=== PATIENT | female | born 1990 | race African-American/Black ===

== ENCOUNTER 2018-03-10 16:41 | Emergency (ER) | payer SELFPAY ==
[~2018-03-10] VITALS: Ht 168.9 cm; Wt 55.4 kg
[2018-03-10 17:17] LABS: BACTERIA,URINE FEW /HPF (0-FEW); BILIRUBIN,URINE NEG (NEG); CLARITY,URINE HAZY; COLOR,URINE YELLOW; GLUCOSE,URINE NEG (NEG); NITRITE,URINE NEG (NEG); RBC,URINE OCC /HPF (0-2); UROBILINOGEN,URINE 0.2 mg/dL (0.2 mg/dL); WBC,URINE OCC /HPF (0-4)
[2018-03-10 17:18] LABS: SQUAMOUS EPITHELIAL CELL,UR MANY /LPF
[2018-03-10] MEDS ORDERED: CEPH-263 PO (17:42)
--- NOTE | 2018-03-10 17:42 | PHYS DOC ---
Past History Past Medical History: STD Past Surgical History: No Surgical History Alcohol Use: Occasionally Drug Use: None Adult General Chief Complaint Chief Complaint: URINARY FREQUENCY HPI HPI 22-year-old female otherwise healthy presenting the emergency department today with dysuria and changes in urine smell. She denies any exposure to STDs or changes in vaginal discharge or being . Her dysuria is a mild burning sensation worse when she urinates. Review of systems is negative for chest pain or shortness of breath. ED course: 28-year-old female presenting with dysuria. Urinalysis is negative however the patient's symptoms are quite consistent with urinary tract infection. We will initiate Keflex to have her follow up with her doctor in 1-2 days.The patient has been examined and was not found to have an emergency medical condition. The patient was then discharged home in stable condition to follow up with their primary care physician over the next 1-2 days. They were to return if their symptoms worsened or if they were concerned for any reason. They were also instructed to return to the emergency department if they were unable to get the recommended and appropriate follow-up. [id number] discharge instructions and return precautions were given. Patient's questions were answered to their satisfaction. Patient is comfortable with plan. Allergies Allergies Allergies Coded Allergies Type Severity Reaction Last Updated Verified latex Allergy Unknown 03/10/18 Yes Physical Exam Physical Exam Constitutional: Well developed, well nourished, no acute distress, non-toxic appearance. [] HENT: Normocephalic, atraumatic, bilateral external ears normal, oropharynx moist, no oral exudates, nose normal. [] Eyes: PERRLA, EOMI, conjunctiva normal, no discharge. [] Neck: Normal range of motion, no tenderness, supple, no stridor. [] Cardiovascular:Heart rate regular rhythm, no murmur [] Lungs & Thorax: Bilateral breath sounds clear to auscultation [] Abdomen: Bowel sounds normal, soft, no tenderness, no masses, no pulsatile masses. [] Skin: Warm, dry, no erythema, no rash. [] Back: No tenderness, no CVA tenderness. [] Extremities: No tenderness, no cyanosis, no clubbing, ROM intact, no edema. [] Neurologic: Alert and oriented X 3, normal motor function, normal sensory function, no focal deficits noted. [] Psychologic: Affect normal, judgement normal, mood normal. [] Current Patient Data Vital Signs Vital Signs Date Time Temp Pulse Resp B/P (MAP) Pulse Ox O2 Delivery O2 Flow Rate FiO2 03/10/18 16:41 97.7 94 18 98 Room Air Lab Results Laboratory Tests Test 03/10/18 16:51 Urine Collection Type Void Urine Color Yellow Urine Clarity Hazy Urine pH 7.0 Urine Specific [place] 1.015 Urine Protein Neg (NEG-TRACE) Urine Glucose (UA) Neg mg/dL (NEG) Urine Ketones (Stick) Neg mg/dL (NEG) Urine Blood Neg (NEG) Urine Nitrite Neg (NEG) Urine Bilirubin Neg (NEG) Urine Urobilinogen Dipstick 0.2 mg/dL (0.2 mg/dL) Urine Leukocyte Esterase Neg (NEG) Urine RBC Occ /HPF (0-2) Urine WBC Occ /HPF (0-4) Urine Squamous Epithelial Cells Many /LPF Urine Bacteria Few /HPF (0-FEW) EKG EKG [] Radiology/Procedures Radiology/Procedures [] Course & Med Decision Making Course & Med Decision Making Pertinent Labs and Imaging studies reviewed. (See chart for details) [] Dragon Disclaimer Dragon Disclaimer This electronic medical record was generated, in whole or in part, using a voice recognition dictation system. Departure Departure: Impression: Primary Impression: Dysuria Disposition: 01 HOME, SELF-CARE Condition: STABLE Referrals: PCPSERINA (PCP) Additional Instructions: Thank you for allowing us to participate in your care today. Return to the emergency department you have any new or worsening symptoms, or if you are concerned for any reason. Return to emergency department if you have any new or concerning symptoms including but not limited to fever, chills, nausea, vomiting, intractable pain, any new rashes, chest pain, shortness of air , uncontrolled bleeding, difficulty breathing, and/or vision loss. Follow up with your primary care physician within 1-2 days. Call your Primary Doctor tomorrow and inform them of your visit today. If you do not have a primary care provider we are happy to provide you with a list of our primary care providers contact information. This condition should be evaluated by your primary care physician and any recommended consulting services for continued management within 2 days after discharge. If at any time, you are having difficulty getting into your primary care doctor or a specialist, return to the emergency department. Scripts Cephalexin (KEFLEX) 250 Mg Capsule 1 CAP PO QID for DYSURIA, #12 CAP Prov: ESTELA WHALEN MD 03/10/18 ESTELA WHALEN MD Mar 10, 2018 17:42
[2018-03-10 18:19] VITALS: BP 119/75
== END 2018-03-10 18:21 | disposition home or self-care (01) ==
LOC: ER 16:41
DX: R30.0 Dysuria (principal); Z91.040 Latex allergy status
CPT/HCPCS: 81001; 99283

== ENCOUNTER 2018-08-18 05:49 | Emergency (ER) | payer SELFPAY ==
[~2018-08-18] VITALS: Ht 167.6 cm; Wt 54.4 kg
[~2018-08-18 05:49] MED LIST: CEPH-263 PO
--- NOTE | 2018-08-18 06:17 | PHYS DOC ---
Past History Past Medical History: No Pertinent History, STD Past Surgical History: No Surgical History Smoking: Cigarettes, Less than 1pk/day Alcohol Use: Occasionally Drug Use: None Adult General Chief Complaint Chief Complaint: EARACHE/EAR PAIN HPI HPI Patient is a 28-year-old female presents with 2 complaints. 1. Right ear pain that started yesterday. No swimming. Has noted some drainage of both clear as well as purulent material. No relief with home medicines. No fever. Nothing makes the symptoms better or worse. Symptoms are mild to moderate in intensity. 2. Urinary frequency. No significant dysuria. Similar symptoms with previous urinary tract infections. Patient has tried using leftover antibiotics, amoxicillin, without any improvement. No back pain or flank pain. No fever. Nothing makes the symptoms better or worse. Symptoms are mild to moderate in intensity.[] Review of Systems Review of Systems Constitutional: Denies fever or chills [] Eyes: Denies change in visual acuity, redness, or eye pain [] HENT: Denies nasal congestion or sore throat, see history of present illness [] Respiratory: Denies cough or shortness of breath [] Cardiovascular: No chest pain or palpitations[] GI: Denies abdominal pain, nausea, vomiting, bloody stools or diarrhea [] : Denies dysuria or hematuria, see history of present illness [] Musculoskeletal: Denies back pain or joint pain [] Integument: Denies rash or skin lesions [] Neurologic: Denies headache, focal weakness or sensory changes [] Endocrine: Denies polyuria or polydipsia [] All other systems were reviewed and found to be within normal limits, except as documented in this note. Allergies Allergies Allergies Coded Allergies Type Severity Reaction Last Updated Verified latex Allergy Unknown 03/10/18 Yes Physical Exam Physical Exam Constitutional: Well developed, well nourished, no acute distress, non-toxic appearance. [] HENT: Normocephalic, atraumatic, bilateral external ears normal, mild pain with tragus tug on the right. Mild canal edema on the right. TM is clear on the right. No mastoid tenderness bilaterally. Left canal and TM are normal. Oropharynx moist, no oral exudates, nose normal. [] Eyes: PERRLA, EOMI, conjunctiva normal, no discharge. [] Neck: Normal range of motion, no tenderness, supple, no stridor. [] Cardiovascular:Heart rate regular rhythm, no murmur [] Lungs & Thorax: Bilateral breath sounds clear to auscultation [] Abdomen: Bowel sounds normal, soft, no tenderness, no masses, no pulsatile masses. [] Skin: Warm, dry, no erythema, no rash. [] Back: No tenderness, no CVA tenderness. [] Extremities: No tenderness, no cyanosis, no clubbing, ROM intact, no edema. [] Neurologic: Alert and oriented X 3, normal motor function, normal sensory function, no focal deficits noted. [] Psychologic: Affect normal, judgement normal, mood normal. [] EKG EKG [] Radiology/Procedures Radiology/Procedures [] Course & Med Decision Making Course & Med Decision Making Pertinent Labs and Imaging studies reviewed. (See chart for details) ED course: Patient appears to have an otitis externa. No evidence of mastoiditis, no Homans ligament otitis externa, no meningitis or encephalitis. Her urine appears to be a contaminated sample. Does not appear to have a significant urinary tract infection.[] Dragon Disclaimer Dragon Disclaimer This electronic medical record was generated, in whole or in part, using a voice recognition dictation system. Departure Departure: Impression: Primary Impression: Otitis externa Additional Impression: Dysuria Disposition: 01 HOME, SELF-CARE Condition: IMPROVED Referrals: PCPSERINA (PCP) Patient Instructions: Dysuria, Otitis Externa Additional Instructions: Follow-up with your regular doctor in 2 days. If he did not have a regular doctor list of local clinics we provided for you. Drink plenty of fluids. Use the medication as prescribed. Return to the ER if worsening discomfort or any other concerns. Scripts Neomycin/Polymyxin B Sulf/Hc ([id number] EAR SOLN) 10 Ml Solution 4 DROP OT QID for otitis externa for 10 Days, MISC Prov: NIRANJAN BROTHERS DO 08/18/18 Meloxicam (MELOXICAM) 7.5 Mg Tablet 7.5 MG PO DAILY for PAIN, #20 TAB Prov: NIRANJAN BROTHERS DO 08/18/18 Cephalexin (KEFLEX) 500 Mg Capsule 500 MG PO QID for infection for 10 Days, #40 CAP Prov: NIRANJAN BROTHERS DO 08/18/18 Problem Qualifiers Primary Impression: Otitis externa Otitis externa type: unspecified type Chronicity: acute Laterality: right Qualified Codes: H60.501 - Unspecified acute noninfective otitis externa, right ear NIRANJAN BROTHERS DO Aug 18, 2018 06:17
[2018-08-18 07:03] LABS: BARBITURATES NEG (NEG); BENZODIAZEPINES NEG (NEG); CANNABINOIDS POS (NEG); COCAINE NEG (NEG); METHADONE NEG (NEG); OPIATES NEG (NEG); PHENCYCLIDINE NEG (NEG)
[2018-08-18 07:04] LABS: AMPHETAMINE/METHAMPHETAMINE NEG (NEG)
[2018-08-18 07:07] LABS: BACTERIA,URINE FEW /HPF (0-FEW); BILIRUBIN,URINE NEG (NEG); CLARITY,URINE HAZY; COLOR,URINE YELLOW; GLUCOSE,URINE NEG (NEG); NITRITE,URINE NEG (NEG); RBC,URINE OCC /HPF (0-2); SQUAMOUS EPITHELIAL CELL,UR MANY /LPF; UROBILINOGEN,URINE 0.2 mg/dL (0.2 mg/dL)
[2018-08-18] MEDS ORDERED: MELO7.5T29 PO (07:13)
[2018-08-18] MEDS ORDERED: CEPH-264 PO (07:13)
[2018-08-18] MEDS ORDERED: NEOM10SO7 OT (07:13)
[2018-08-18 07:20] VITALS: BP 102/76
== END 2018-08-18 07:20 | disposition home or self-care (01) ==
LOC: ER 05:49
DX: H60.501 Unspecified acute noninfective otitis externa, right ear (principal); R30.0 Dysuria; F17.210 Nicotine dependence, cigarettes, uncomplicated; Z87.440 Personal history of urinary (tract) infections; Z91.040 Latex allergy status
CPT/HCPCS: 36415; 80307; 81001; 81025; 99284

== ENCOUNTER 2018-11-10 18:05 | Emergency (ER) | payer SELFPAY ==
[~2018-11-10] VITALS: Ht 167.6 cm; Wt 55.4 kg
[~2018-11-10 18:05] MED LIST changes: +CEPH-264 PO; +MELO7.5T29 PO; +NEOM10SO7 OT
--- NOTE | 2018-11-10 18:43 | PHYS DOC ---
Past History Past Medical History: No Pertinent History, STD Past Surgical History: No Surgical History Smoking: Cigarettes, Less than 1pk/day Alcohol Use: Occasionally Drug Use: None Adult General Chief Complaint Chief Complaint: PAIN ON URINATION HPI HPI Patient is a 28-year-old female presents with dysuria for the past week. She was seen at [place] last week and diagnosed with the UTI. She finished the antibiotics without any improvement. She denies any hematuria, or vaginal bleeding. Denies any back or flank pain. Denies any fever. No nausea or vomiting. Nothing makes the symptoms better or worse. Patient has not followed up with any primary care physician for this condition. Symptoms are mild to moderate in intensity.[] Review of Systems Review of Systems Constitutional: Denies fever or chills [] Eyes: Denies change in visual acuity, redness, or eye pain [] HENT: Denies nasal congestion or sore throat [] Respiratory: Denies cough or shortness of breath [] Cardiovascular: No chest pain or palpitations[] GI: Denies abdominal pain, nausea, vomiting, bloody stools or diarrhea [] : See history of present illness[] Musculoskeletal: Denies back pain or joint pain [] Integument: Denies rash or skin lesions [] Neurologic: Denies headache, focal weakness or sensory changes [] Endocrine: Denies polyuria or polydipsia [] All other systems were reviewed and found to be within normal limits, except as documented in this note. Allergies Allergies Allergies Coded Allergies Type Severity Reaction Last Updated Verified latex Allergy Unknown 03/10/18 Yes Physical Exam Physical Exam Constitutional: Well developed, well nourished, no acute distress, non-toxic appearance. [] HENT: Normocephalic, atraumatic, bilateral external ears normal, oropharynx moist, no oral exudates, nose normal. [] Eyes: PERRLA, EOMI, conjunctiva normal, no discharge. [] Neck: Normal range of motion, no tenderness, supple, no stridor. [] Cardiovascular:Heart rate regular rhythm, no murmur [] Lungs & Thorax: Bilateral breath sounds clear to auscultation [] Abdomen: Bowel sounds normal, soft, no tenderness, no masses, no pulsatile masses. [] Skin: Warm, dry, no erythema, no rash. [] Back: No tenderness, no CVA tenderness. [] Extremities: No tenderness, no cyanosis, no clubbing, ROM intact, no edema. [] Neurologic: Alert and oriented X 3, normal motor function, normal sensory function, no focal deficits noted. [] Psychologic: Affect normal, judgement normal, mood normal. [] Current Patient Data Vital Signs Vital Signs Date Time Temp Pulse Resp B/P (MAP) Pulse Ox O2 Delivery O2 Flow Rate FiO2 11/10/18 18:16 98.2 84 16 100 Room Air Lab Results Laboratory Tests Test 11/10/18 18:36 POC Urine HCG, Qualitative hcg negative (Negative) EKG EKG [] Radiology/Procedures Radiology/Procedures [] Course & Med Decision Making Course & Med Decision Making Pertinent Labs and Imaging studies reviewed. (See chart for details) ED course: Patient arrived, was placed in bed, and tolerated exam well. After return lab these, these were discussed with patient who voiced understanding. All questions were answered. She was discharged in improved condition. Medical decision making: Patient with dysuria, no evidence of urinary tract in fection, however will cover for that. GC and chlamydia are currently in progress. Will also treat for dysuria. There is no evidence of pyelonephritis, nor systemic toxicity.[] Dragon Disclaimer Dragon Disclaimer This electronic medical record was generated, in whole or in part, using a voice recognition dictation system. Departure Departure: Impression: Primary Impression: Dysuria Disposition: 01 HOME, SELF-CARE Condition: IMPROVED Referrals: PCP,NO (PCP) Patient Instructions: Dysuria Additional Instructions: Follow-up with your regular doctor in 2 days. If you do not have regular doctor list of local clinics will be provided for you. Drink plenty of fluids. Take the medication as prescribed. Return to the ER if you develop a fever of more than 101�, or any other concerns. Scripts Fluconazole (DIFLUCAN) 150 Mg Tablet 1 TAB PO ONCE for take at end of doxycycline, #1 TAB 1 Refill Prov: NIRANJAN BROTHERS DO 11/10/18 Phenazopyridine Hcl (PYRIDIUM) 200 Mg Tablet 200 MG PO TID for dysuria for 2 Days, #6 TAB Prov: NIRANJAN BROTHERS DO 11/10/18 Meloxicam (MELOXICAM) 7.5 Mg Tablet 7.5 MG PO DAILY for PAIN, #20 TAB Prov: NIRANJAN BROTHERS DO 11/10/18 Doxycycline Hyclate (DOXYCYCLINE HYCLATE) 100 Mg Tablet 1 TAB PO BID for dysuria, #20 TAB Prov: NIRANJAN BROTHERS DO 11/10/18 NIRANJAN BROTHERS DO Nov 10, 2018 18:43
[2018-11-10 19:13] LABS: BACTERIA,URINE 0 /HPF (0-FEW); BILIRUBIN,URINE NEG (NEG); CLARITY,URINE CLEAR; COLOR,URINE YELLOW; GLUCOSE,URINE NEG (NEG); NITRITE,URINE NEG (NEG); RBC,URINE 0 /HPF (0-2); SQUAMOUS EPITHELIAL CELL,UR OCC /LPF; UROBILINOGEN,URINE 0.2 mg/dL (0.2 mg/dL); WBC,URINE OCC /HPF (0-4)
[2018-11-10] MEDS ORDERED: DOXY100T PO (19:26)
[2018-11-10] MEDS ORDERED: MELO7.5T29 PO (19:26)
[2018-11-10] MEDS ORDERED: PHEN-318 PO (19:26)
[2018-11-10] MEDS ORDERED: FLUC150T PO (19:26)
[2018-11-10 19:40] VITALS: BP 113/61
== END 2018-11-10 19:39 | disposition home or self-care (01) ==
LOC: ER 18:05
DX: R30.0 Dysuria (principal); F17.210 Nicotine dependence, cigarettes, uncomplicated; Z87.440 Personal history of urinary (tract) infections; Z91.040 Latex allergy status
CPT/HCPCS: 36415; 81001; 81025; 87491; 87591; 99284

== ENCOUNTER 2019-02-03 00:33 | Emergency (ER) | payer SELFPAY ==
[~2019-02-03] VITALS: Ht 167.6 cm; Wt 55.3 kg
[~2019-02-03 00:33] MED LIST changes: +DOXY100T PO; +FLUC150T PO; +PHEN-318 PO
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
[2019-02-03 00:51] VITALS: BP 117/77
[2019-02-03] MEDS ORDERED: AZITHROMYCIN 250 MG TABLET. PO ONE (01:15)
[2019-02-03] MEDS ORDERED: metroNIDAZOLE 500 MG TABLET PO ONE (01:15)
[2019-02-03] MEDS ORDERED: ONDANSETRON PF 4 MG/2 ML VIAL. IVP ONE (01:15)
[2019-02-03] MEDS ORDERED: CEPH-264 PO (01:16)
[2019-02-03] MEDS ORDERED: FLUC100T7 PO (01:17)
[2019-02-03] MEDS ORDERED: ONDANSETRON ODT 4 MG TAB.RAPDIS ONE (01:24)
[2019-02-03] MEDS ORDERED: cefTRIAXone SODIUM 1 GM VIAL ONE (01:24)
[2019-02-03] MEDS ORDERED: AZITHROMYCIN 250 MG TABLET. ONE (01:24)
[2019-02-03] MEDS ORDERED: metroNIDAZOLE 500 MG TABLET ONE (01:24)
[2019-02-03] MEDS ORDERED: cefTRIAXone IM 1 GM VIAL IM ONE (01:30)
[2019-02-03] MEDS ORDERED: ONDANSETRON ODT 4 MG TAB.RAPDIS PO ONE (01:30)
[2019-02-03 01:36] LABS: BACTERIA,URINE FEW /HPF (0-FEW); BILIRUBIN,URINE NEG (NEG); CLARITY,URINE CLEAR; COLOR,URINE YELLOW; GLUCOSE,URINE NEG (NEG); NITRITE,URINE NEG (NEG); RBC,URINE 0 /HPF (0-2); SQUAMOUS EPITHELIAL CELL,UR MANY /LPF; UROBILINOGEN,URINE 0.2 mg/dL (0.2 mg/dL); WBC,URINE OCC /HPF (0-4)
[2019-02-06 17:07] LABS: CHLAMYDIA PROBE Negative (Negative)
== END 2019-02-03 01:50 | disposition home or self-care (01) ==
LOC: ER 00:33
DX: N72 Inflammatory disease of cervix uteri (principal); F17.210 Nicotine dependence, cigarettes, uncomplicated; Z91.040 Latex allergy status
CPT/HCPCS: 36415; 81001; 81025; 87491; 87591; 96372; 99284; J0456; J0696; Q0111; Q0162

== ENCOUNTER 2019-03-21 19:27 | Emergency (ER) | payer SELFPAY ==
[~2019-03-21 19:27] MED LIST changes: +FLUC100T7 PO
== END 2019-03-21 20:50 | disposition home or self-care (01) ==
LOC: ER 19:27
DX: R30.0 Dysuria (principal); Z53.21 Procedure and treatment not carried out due to patient leaving prior to being seen by health care provider

== ENCOUNTER 2019-04-04 14:49 | Emergency (ER) | payer SELFPAY ==
[~2019-04-04] VITALS: Ht 167.6 cm; Wt 55.4 kg
[2019-04-04 15:47] LABS: BACTERIA,URINE MOD /HPF (0-FEW); BILIRUBIN,URINE NEG (NEG); CLARITY,URINE HAZY; COLOR,URINE YELLOW; GLUCOSE,URINE NEG (NEG); NITRITE,URINE POS (NEG); RBC,URINE 0 /HPF (0-2); SQUAMOUS EPITHELIAL CELL,UR FEW /LPF; UROBILINOGEN,URINE 0.2 mg/dL (0.2 mg/dL)
--- NOTE | 2019-04-04 16:03 | PHYS DOC ---
Past History Past Medical History: No Pertinent History, STD Past Surgical History: No Surgical History Smoking: Cigarettes, Less than 1pk/day Alcohol Use: Occasionally Drug Use: None Adult General Chief Complaint Chief Complaint: PAIN ON URINATION HPI HPI 29-year-old female presents with vaginal irritation. The patient's PCP for more than a week ago and diagnosed with UTI. She has been taking antibiotics as well as Flagyl for bacterial vaginosis and Diflucan for yeast. The patient still has irritation mostly on the right side of her labia. She had STD testing which was all negative. She was just concerned she still has irritation were not sure why. She has not had sexual intercourse last 2 weeks. She has been using tampons, but not a new brand or scent. She denies fever or chills. Denies dysuria or increased urinary frequency. Review of Systems Review of Systems Constitutional: Denies fever or chills [] Eyes: Denies change in visual acuity, redness, or eye pain [] HENT: Denies nasal congestion or sore throat [] Respiratory: Denies cough or shortness of breath [] Cardiovascular: No additional information not addressed in HPI [] GI: Denies abdominal pain, nausea, vomiting, bloody stools or diarrhea [] : Vaginal pain[] Musculoskeletal: Denies back pain or joint pain [] Integument: Denies rash or skin lesions [] Neurologic: Denies headache, focal weakness or sensory changes [] Endocrine: Denies polyuria or polydipsia [] All other systems were reviewed and found to be within normal limits, except as documented in this note. Allergies Allergies Allergies Coded Allergies Type Severity Reaction Last Updated Verified latex Allergy Unknown 03/10/18 Yes Physical Exam Physical Exam Constitutional: Well developed, well nourished, no acute distress, non-toxic appearance. [] HENT: Normocephalic, atraumatic, bilateral external ears normal, oropharynx moist, no oral exudates, nose normal. [] Eyes: PERRLA, EOMI, conjunctiva normal, no discharge. [] Neck: Normal range of motion, no tenderness, supple, no stridor. [] Cardiovascular:Heart rate regular rhythm, no murmur [] Lungs & Thorax: Bilateral breath sounds clear to auscultation [] Abdomen: Bowel sounds normal, soft, no tenderness, no masses, no pulsatile masses. [] Skin: Warm, dry, no erythema, no rash. [] Back: No tenderness, no CVA tenderness. [] Extremities: No tenderness, no cyanosis, no clubbing, ROM intact, no edema. [] Neurologic: Alert and oriented X 3, normal motor function, normal sensory function, no focal deficits noted. [] Psychologic: Affect normal, judgement normal, mood normal. : Normal external genitalia, shaved pubic hair, thick white discharge, mild tenderness.[] Current Patient Data Vital Signs Vital Signs Date Time Temp Pulse Resp B/P (MAP) Pulse Ox O2 Delivery O2 Flow Rate FiO2 04/04/19 15:10 98.8 86 15 122/74 (90) 99 Room Air Lab Results Laboratory Tests Test 04/04/19 15:00 04/04/19 15:22 Urine Collection Type Unknown Urine Color Yellow Urine Clarity Hazy Urine pH 6.5 Urine Specific [place] 1.020 Urine Protein Neg (NEG-TRACE) Urine Glucose (UA) Neg mg/dL (NEG) Urine Ketones (Stick) Neg mg/dL (NEG) Urine Blood Neg (NEG) Urine Nitrite Pos (NEG) Urine Bilirubin Neg (NEG) Urine Urobilinogen Dipstick 0.2 mg/dL (0.2 mg/dL) Urine Leukocyte Esterase Neg (NEG) Urine RBC 0 /HPF (0-2) Urine WBC 5-10 /HPF (0-4) Urine Squamous Epithelial Cells Few /LPF Urine Bacteria Mod /HPF (0-FEW) POC Urine HCG, Qualitative hcg negative (Negative) EKG EKG [] Radiology/Procedures Radiology/Procedures [] Course & Med Decision Making Course & Med Decision Making Pertinent Labs and Imaging studies reviewed. (See chart for details) The patient's wet prep is negative. She still appears to have UTI. I will treat her with fosfomycin single dose in the ED. She is stable for discharge at this time. Some of her irritation may also be from razor burn from shaving her pubic hair. [] Dragon Disclaimer Dragon Disclaimer This electronic medical record was generated, in whole or in part, using a voice recognition dictation system. Departure Departure: Impression: Primary Impression: UTI (urinary tract infection) Disposition: 01 HOME, SELF-CARE Condition: STABLE Referrals: NAHOMY JARVIS MD (PCP) Patient Instructions: Urinary Tract Infection, [id number] Problem Qualifiers Primary Impression: UTI (urinary tract infection) Urinary tract infection type: acute cystitis Hematuria presence: with hematuria Qualified Codes: N30.01 - Acute cystitis with hematuria BELL YIN DO Apr 04, 2019 16:03
[2019-04-04] MEDS ORDERED: FOSFOMYCIN TROMETHAMINE 3 GM PACKET PO ONE (17:00)
[2019-04-04 17:15] VITALS: BP 118/67
== END 2019-04-04 17:18 | disposition home or self-care (01) ==
LOC: ER 14:54
DX: N30.01 Acute cystitis with hematuria (principal); F17.210 Nicotine dependence, cigarettes, uncomplicated; Z91.040 Latex allergy status
CPT/HCPCS: 81001; 81025; 87086; 99284; Q0111

== ENCOUNTER 2019-05-04 15:17 | Emergency (ER) | payer SELFPAY ==
[~2019-05-04] VITALS: Ht 167.6 cm; Wt 53.6 kg
[2019-05-04 15:17] VITALS: BP 109/70
--- NOTE | 2019-05-04 15:48 | PHYS DOC ---
Past History Past Medical History: No Pertinent History, STD Past Surgical History: No Surgical History Smoking: Cigarettes, Less than 1pk/day Alcohol Use: Occasionally Drug Use: None Adult General Chief Complaint Chief Complaint: PAIN ON URINATION HPI HPI Patient is a 29-year-old female, who presents to the emergency department for evaluation. She states for the past few days, she has had urinary frequency, dysuria, and hesitancy. She has not had any vaginal bleeding or discharge, denies any pelvic or back pain, fevers, chills, nausea, or vomiting. There are n o alleviating or exacerbating factors to her symptoms otherwise. Review of Systems Review of Systems Constitutional: Denies fever or chills [] Eyes: Denies change in visual acuity, redness, or eye pain [] HENT: Denies nasal congestion or sore throat [] GI: Denies abdominal pain, nausea, vomiting, bloody stools or diarrhea [] : Denies vaginal bleeding, discharge, or hematuria [] Musculoskeletal: Denies back pain or joint pain [] Integument: Denies rash or skin lesions [] Neurologic: Denies headache, focal weakness or sensory changes [] Allergies Allergies Allergies Coded Allergies Type Severity Reaction Last Updated Verified latex Allergy Unknown 03/10/18 Yes Physical Exam Physical Exam PHYSICAL EXAM: CONSTITUTIONAL: Well developed, well nourished HEAD: normocephalic, atraumatic EENT: PERRL, EOMI. Conjunctivae normal color, sclerae non-icteric; moist mucous membranes. NECK: Supple, non-tender; no meningismus. LUNGS: Lungs CTA, breathing even and unlabored. Normal air movement. HEART: Regular rate and rhythm, no murmur CHEST: No deformity; non-tender ABDOMEN: The abdomen is soft, and non-tender, no masses or bruits. EXTREM: Normal ROM; no deformity, no calf tenderness. Normal pulses palpable in all extremities. There is no pedal edema. SKIN: No rash; no diaphoresis NEURO: Alert; normal speech and cognition; CN's grossly intact; strength grossly intact without focal deficit. BACK: No CVA TTP. Current Patient Data Lab Results Laboratory Tests Test 05/04/19 15:43 POC Urine HCG, Qualitative hcg negative (Negative) EKG EKG [] Radiology/Procedures Radiology/Procedures [] Course & Med Decision Making Course & Med Decision Making Pertinent Labs studies reviewed. (See chart for details) []Patient underwent a medical screening exam, and per hospital MSE policy, declined to complete course of treatment in this facility. She has departed the emergency department prior to results of her urinalysis become available. Dragon Disclaimer Dragon Disclaimer This electronic medical record was generated, in whole or in part, using a voice recognition dictation system. Departure Departure: Impression: Primary Impression: Dysuria Disposition: AGAINST MEDICAL ADVICE Condition: STABLE Referrals: NAHOMY JARVIS MD (PCP) JUNE LOCO MD May 04, 2019 15:48
[2019-05-04 16:23] LABS: BACTERIA,URINE 0 /HPF (0-FEW); BILIRUBIN,URINE NEG (NEG); CLARITY,URINE CLEAR; COLOR,URINE YELLOW; GLUCOSE,URINE NEG (NEG); NITRITE,URINE NEG (NEG); RBC,URINE 0 /HPF (0-2); SQUAMOUS EPITHELIAL CELL,UR OCC /LPF; UROBILINOGEN,URINE 0.2 mg/dL (0.2 mg/dL); WBC,URINE 0 /HPF (0-4)
== END 2019-05-04 16:15 | disposition left against medical advice (07) ==
LOC: ER 15:17
DX: R30.0 Dysuria (principal); R35.0 Frequency of micturition; R39.11 Hesitancy of micturition; F17.210 Nicotine dependence, cigarettes, uncomplicated; Z91.040 Latex allergy status
CPT/HCPCS: 81001; 81025; 99283

== ENCOUNTER 2020-03-27 19:42 | Emergency (ER) | payer OTHER ==
[~2020-03-27] VITALS: Ht 167.6 cm; Wt 62.2 kg
[2020-03-27] MEDS ORDERED: IV NORMAL SALINE 1,000ML 1,000 ML IV ONE (20:15)
[2020-03-27 20:31] LABS: BASO # 0.1 x10^3/uL (0.0-0.2); BASO % 1 % (0-3); EOS # 0.3 x10^3/uL (0.0-0.7); EOS % 3 % (0-3); HEMATOCRIT 37.5 % (36.0-47.0); HEMOGLOBIN 12.7 g/dL (12.0-15.5); LYMPH # 2.3 x10^3/uL (1.0-4.8); LYMPH % 19 % (24-48); MEAN CORPUSCULAR HEMOGLOBIN 30 pg (25-35); MEAN CORPUSCULAR HGB CONC 34 g/dL (31-37); MEAN CORPUSCULAR VOLUME 88 fL (79-100); MONO # 1.3 x10^3/uL (0.0-1.1); MONO % 10 % (0-9); NEUT # 8.4 x10^3uL (1.8-7.7); NEUT % 68 % (31-73); PLATELET COUNT 243 x10^3/uL (140-400); RED BLOOD COUNT 4.27 x10^6/uL (3.50-5.40); RED CELL DISTRIBUTION WIDTH 13.1 % (11.5-14.5); WHITE BLOOD COUNT 12.4 x10^3/uL (4.0-11.0)
[2020-03-27 20:41] LABS: ALBUMIN/GLOBULIN RATIO 0.7 (1.0-1.7); CALCIUM 8.5 mg/dL (8.5-10.1); CREATININE 0.7 mg/dL (0.6-1.0); GFR 118.9; MAGNESIUM 1.6 mg/dL (1.8-2.4); POTASSIUM 3.9 mmol/L (3.5-5.1); TOTAL BILIRUBIN 0.3 mg/dL (0.2-1.0); TOTAL PROTEIN 7.1 g/dL (6.4-8.2)
--- NOTE | 2020-03-27 20:46 | PHYS DOC ---
Past History Past Medical History: No Pertinent History, STD Past Surgical History: No Surgical History Smoking: Cigarettes, Less than 1pk/day Additional Smoking Information: not currently smoking 2/2 Alcohol Use: Occasionally Additional Alcohol Information: not currently smoking 2/2 Drug Use: None General Adult EDM: Chief Complaint: ABDOMINAL PAIN HPI: HPI: Patient is a 30 year old female who presents at 13w5d with abdominal pain. She began to notice a constant 5/10 bilateral lower abdominal pain yesterday that has persisted to today. She also has been experiencing urinary urgency and frequency. She denies dysuria, vaginal discharge, or vaginal bleeding. She has not taken anything for the pain and has not found anything that makes it better. She also has noted that she has been constipated for the last couple of weeks. Her last bowel movement was yesterday, it was small and firm and required straining. Prior to that she did not have a bowel movement for a week. She denies nausea, vomiting, or blood in stool. Review of Systems: Review of Systems: Constitutional: Denies fever or chills HENT: Denies nasal congestion or sore throat Respiratory: Denies cough or shortness of breath Cardiovascular: Denies chest pain or palpitations GI: Admits bilateral lower abdominal pain, constipation. 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 Denies dysuria or hematuria, vaginal discharge, vaginal bleeding Musculoskeletal: admits back pain. Denies joint pain Integument: Denies rash or skin lesions Neurologic: Denies headache, focal weakness or sensory changes Complete systems were reviewed and found to be within normal limits, except as documented in this note. Current Medications: Current Meds: Current Medications Medications (Trade) Dose Ordered Sig/Isai Start Time Stop Time Status Last Admin Dose Admin Sodium Chloride 1,000 ml @ 1,000 mls/hr 1X ONCE 03/27/20 20:15 03/27/20 21:14 03/27/20 20:08 1,000 MLS/HR Allergies: Allergies: Allergies Coded Allergies Type Severity Reaction Last Updated Verified latex Allergy Unknown 05/04/19 Yes Physical Exam: PE: Constitutional: Well developed, well nourished, no acute distress, non-toxic appearance HENT: Normocephalic, atraumatic Eyes: EOMI, conjunctiva normal, no discharge Neck: Normal range of motion, no tenderness, supple Lungs & Thorax: No respiratory distress, equal chest rise and fall Abdomen: Soft, gravid uterus below umbilicus , no tenderness Pelvic exam: No lesions or ulcers on external genitalia. Right labia majora had nontender area of scar tissue. Speculum exam:Copious light yellow thick curdl like discharge in the vaginal vault and adherent to vaginal kirkpatrick. Bimanual Exam: posterior cervix non-tender, no masses in vagina adnexa non-tender/no masses palpated bilaterally, uterus enlarged. Route Deliverer present in room- [facility] RN Skin: Warm, dry, no erythema, no rash Extremities: No tenderness, ROM intact, no edema Neurologic: Alert and oriented X 3, normal motor function, normal sensory function, no focal deficits noted Psychologic: Affect normal, judgment normal Current Patient Data: Vital Signs: Vital Signs Date Time Temp Pulse Resp B/P (MAP) Pulse Ox O2 Delivery O2 Flow Rate FiO2 03/27/20 20:12 98.6 91 16 127/83 (98) 100 Room Air EKG: EKG: [] Radiology/Procedures: Radiology/Procedures: PROCEDURE: OB <14 WKS Exam: Ultrasound OB less than 14 weeks Indication: Abdominal pain and Technique: Real-time grayscale and color Doppler images of the pelvis were obtained by the department binder folder operator. Comparisons: None FINDINGS: Uterus measures 13.4 x 8.9 x 7.1 cm. Within the endometrium there is a gestational sac with internal pole measuring 6.9 cm corresponding to 13 weeks 1 day. origin measured at 1 53 bpm. Placenta is fundal and appears normal. Left and right ovary is not visualized. IMPRESSION: 1. Single live intrauterine gestation measuring 13 weeks 1 day by current ultrasound. 2. Dedicated survey is recommended at 18-20 weeks gestation. Electronically signed by: Leonel Bethea MD (03/27/2020 10:05 PM) [facility] Course & Med Decision Making: Course & Med Decision Making Pertinent Labs and Imaging studies reviewed. (See chart for details) This 30 yo female presents at 13w5d with abdominal pain, urinary frequency, and constipation. She was provided IVF while in the ED. CBC, BMP, Mg, Lipase ordered to evaluate for signs of infection, electrolyte abnormalities, potential cause of abdominal pain. WBC at 12.5. A wet pelvic exam was performed, swab collected to test for STI, BV, and yeast. Patient declined empiric treatment/coverage for Chlamydia/Gonorrhea. Pelvic exam consistent with concern for vulvovaginal candidiasis confirmed by wet mo unt. Urine negative for infection. Ultrasound stable with single IUP with good heart rate. Patient stable for discharge with outpatient follow-up with PCP/OB. Discussed findings and plan with patient, who acknowledges understanding and agreement. Hussein Disclaimer: Hussein Disclaimer: This electronic medical record was generated, in whole or in part, using a voice recognition dictation system. Departure Departure: Impression: Primary Impression: Abdominal pain during Qualified Codes: O26.891 - Other specified related conditions, first trimester; R10.9 - Unspecified abdominal pain Additional Impressions: Vulvovaginal candidiasis Bacterial vaginosis in Disposition: 01 DC HOME SELF CARE/HOMELESS Condition: STABLE Referrals: ADE TOM CNM (PCP) Patient Instructions: Abdominal Pain During , [id number], Bacterial Vaginosis, [id number], Candidal Vulvovaginitis, Wdgh-ka-Ogju Scripts Fluconazole (DIFLUCAN) 200 Mg Tablet 1 TAB PO DAILY for Yeast, #1 TAB Take this medication 1 day after finishing antibiotic therapy. Prov: AIDE KOTHARI DO 03/27/20 Metronidazole (FLAGYL) 500 Mg Tablet 1 TAB PO BID for Bacterial Vaginitis, #14 TAB Prov: AIDE KOTHARI DO 03/27/20 AIDE KOTHARI DO Mar 27, 2020 20:46
[2020-03-27 21:26] LABS: BILIRUBIN,URINE NEG (NEG); CLARITY,URINE CLEAR; COLOR,URINE COLORLESS; GLUCOSE,URINE NEG (NEG)
[2020-03-27 21:27] LABS: BACTERIA,URINE 0 /HPF (0-FEW); NITRITE,URINE NEG (NEG); RBC,URINE 0 /HPF (0-2); SQUAMOUS EPITHELIAL CELL,UR FEW /LPF; UROBILINOGEN,URINE 0.2 mg/dL (0.2 mg/dL); WBC,URINE 0 /HPF (0-4)
--- NOTE | 2020-03-27 22:08 | RAD ---
Exam: Ultrasound OB less than 14 weeks Indication: Abdominal pain and Technique: Real-time grayscale and color Doppler images of the pelvis were obtained by the department telephone betting clerk. Comparisons: None FINDINGS: Uterus measures 13.4 x 8.9 x 7.1 cm. Within the endometrium there is a gestational sac with internal pole measuring 6.9 cm corresponding to 13 weeks 1 day. origin measured at 1 53 bpm. Placenta is fundal and appears normal. Left and right ovary is not visualized. IMPRESSION: 1. Single live intrauterine gestation measuring 13 weeks 1 day by current ultrasound. 2. Dedicated survey is recommended at 18-20 weeks gestation. Electronically signed by: Leonel Bethea MD (03/27/2020 10:05 PM) [facility]
[2020-03-27] MEDS ORDERED: FLUC200T PO (22:31)
[2020-03-27] MEDS ORDERED: METR500T PO (22:31)
[2020-03-27 22:41] VITALS: BP 118/76
[2020-03-27] MEDS ORDERED: FLUCONAZOLE 100 MG TABLET. PO ONE (22:45)
[2020-03-29 19:13] LABS: CHLAMYDIA PROBE Negative (Negative)
== END 2020-03-27 22:42 | disposition home or self-care (01) ==
LOC: ER 19:42
DX: O23.591 Infection of other part of genital tract in pregnancy, first trimester (principal); B96.89 Other specified bacterial agents as the cause of diseases classified elsewhere; O98.811 Other maternal infectious and parasitic diseases complicating pregnancy, first trimester; B37.3 Candidiasis of vulva and vagina; R39.15 Urgency of urination; Z3A.13 13 weeks gestation of pregnancy
CPT/HCPCS: 76801; 80053; 81001; 83690; 83735; 84702; 85025; 87086; 87491; 87591; 96360; 99284; J7030; Q0111; 36415

== ENCOUNTER 2020-07-17 00:14 | Emergency (ER) | payer OTHER ==
[~2020-07-17] VITALS: Ht 167.6 cm; Wt 75.0 kg
[~2020-07-17 00:14] MED LIST changes: +FLUC200T PO; +METR500T PO
[2020-07-17] MEDS ORDERED: ONDANSETRON PF 4 MG/2 ML VIAL. IVP ONE (01:00)
[2020-07-17] MEDS ORDERED: IV NORMAL SALINE 1,000ML 1,000 ML IV ONE (01:00)
[2020-07-17] MEDS ORDERED: FAMOTIDINE 20 MG/2 ML VIAL IVP ONE (01:00)
[2020-07-17 01:31] LABS: BASO # 0.1 x10^3/uL (0.0-0.2); BASO % 1 % (0-3); EOS # 0.3 x10^3/uL (0.0-0.7); EOS % 2 % (0-3); HEMATOCRIT 33.3 % (36.0-47.0); HEMOGLOBIN 10.6 g/dL (12.0-15.5); LYMPH # 2.2 x10^3/uL (1.0-4.8); LYMPH % 15 % (24-48); MEAN CORPUSCULAR HEMOGLOBIN 25 pg (25-35); MEAN CORPUSCULAR HGB CONC 32 g/dL (31-37); MEAN CORPUSCULAR VOLUME 79 fL (79-100); MONO # 1.6 x10^3/uL (0.0-1.1); MONO % 11 % (0-9); NEUT # 10.6 x10^3uL (1.8-7.7); NEUT % 72 % (31-73); PLATELET COUNT 256 x10^3/uL (140-400); RED BLOOD COUNT 4.21 x10^6/uL (3.50-5.40); RED CELL DISTRIBUTION WIDTH 15.4 % (11.5-14.5); WHITE BLOOD COUNT 14.7 x10^3/uL (4.0-11.0)
--- NOTE | 2020-07-17 01:36 | PHYS DOC ---
Past History Past Medical History: No Pertinent History, STD Past Surgical History: No Surgical History Smoking: Cigarettes, Less than 1pk/day Alcohol Use: Occasionally Drug Use: None General Adult EDM: Chief Complaint: HEMATEMESIS/VOMITING BLOOD HPI: HPI: Patient is a [age] year old [sex] who presents with [] Review of Systems: Review of Systems: Constitutional: Denies fever or chills Eyes: Denies redness or eye pain HENT: Denies nasal congestion or sore throat Respiratory: Denies cough or shortness of breath Cardiovascular: Denies chest pain or palpitations GI: Denies abdominal pain, nausea, or vomiting : Denies dysuria or hematuria Musculoskeletal: Denies back pain or joint pain Integument: Denies rash or skin lesions Neurologic: Denies headache, focal weakness or sensory changes Complete systems were reviewed and found to be within normal limits, except as documented in this note. Current Medications: Current Meds: Current Medications Medications (Trade) Dose Ordered Sig/Isai Start Time Stop Time Status Last Admin Dose Admin Famotidine (Pepcid Vial) 20 mg 1X ONCE 07/17/20 01:00 07/17/20 01:01 DC 07/17/20 01:05 20 MG Ondansetron HCl (Zofran) 4 mg 1X ONCE 07/17/20 01:00 07/17/20 01:01 DC 07/17/20 01:05 4 MG Sodium Chloride 1,000 ml @ 1,000 mls/hr 1X ONCE 07/17/20 01:00 07/17/20 01:59 07/17/20 01:05 1,000 MLS/HR Allergies: Allergies: Allergies Coded Allergies Type Severity Reaction Last Updated Verified latex Allergy Unknown 05/04/19 Yes Physical Exam: PE: Constitutional: Well developed, well nourished, no acute distress, non-toxic appearance HENT: Normocephalic, atraumatic Eyes: PERRL, EOMI, conjunctiva normal, no discharge Neck: Normal range of motion, no tenderness, supple Lungs & Thorax: No respiratory distress, equal chest rise and fall Abdomen: Soft, no tenderness Skin: Warm, dry, no erythema, no rash Back: No tenderness, no CVA tenderness Extremities: No tenderness, ROM intact, no edema Neurologic: Alert and oriented X 3, normal motor function, normal sensory f unction, no focal deficits noted Psychologic: Affect normal, judgment normal Current Patient Data: Labs: Laboratory Tests Test 07/17/20 00:55 White Blood Count 14.7 x10^3/uL (4.0-11.0) H Red Blood Count 4.21 x10^6/uL (3.50-5.40) Hemoglobin 10.6 g/dL (12.0-15.5) L Hematocrit 33.3 % (36.0-47.0) L Mean Corpuscular Volume 79 fL (79-100) Mean Corpuscular Hemoglobin 25 pg (25-35) Mean Corpuscular Hemoglobin Concent 32 g/dL (31-37) Red Cell Distribution Width 15.4 % (11.5-14.5) H Platelet Count 256 x10^3/uL (140-400) Neutrophils (%) (Auto) 72 % (31-73) Lymphocytes (%) (Auto) 15 % (24-48) L Monocytes (%) (Auto) 11 % (0-9) H Eosinophils (%) (Auto) 2 % (0-3) Basophils (%) (Auto) 1 % (0-3) Neutrophils # (Auto) 10.6 x10^3uL (1.8-7.7) H Lymphocytes # (Auto) 2.2 x10^3/uL (1.0-4.8) Monocytes # (Auto) 1.6 x10^3/uL (0.0-1.1) H Eosinophils # (Auto) 0.3 x10^3/uL (0.0-0.7) Basophils # (Auto) 0.1 x10^3/uL (0.0-0.2) Vital Signs: Vital Signs Date Time Temp Pulse Resp B/P (MAP) Pulse Ox O2 Delivery O2 Flow Rate FiO2 07/17/20 00:14 98.3 95 18 109/74 (86) 96 Room Air EKG: EKG: [] Radiology/Procedures: Radiology/Procedures: [] Heart Score: C/O Chest Pain: N/A Course & Med Decision Making: Course & Med Decision Making Pertinent Labs and Imaging studies reviewed. (See chart for details) Patient stable for discharge with outpatient follow-up with PCP. Discussed findings and plan with patient, who acknowledges understanding and agreement. Hussein Disclaimer: Hussein Disclaimer: This electronic medical record was generated, in whole or in part, using a voice recognition dictation system. Departure Departure: Impression: Primary Impression: Vomiting during in third trimester Additional Impression: Anemia Qualified Codes: D64.9 - Anemia, unspecified Disposition: HOME / SELF CARE / HOMELESS Condition: STABLE Referrals: ADE TOM CNM (PCP) Patient Instructions: ABCs of , Nausea and Vomiting, Cphx-[id number], - Anemia During Scripts Famotidine (PEPCID) 20 Mg Tablet 1 TAB PO BID for gastritis for 5 Days, #10 TAB Prov: AIDE KOTHARI DO 07/17/20 Ondansetron (ONDANSETRON ODT) 4 Mg Tab.rapdis 1 TAB PO PRN Q6-8HRS PRN for NAUSEA, #16 TAB Prov: AIDE KOTHARI DO 07/17/20 AIDE KOTHARI DO July 17, 2020 01:36
[2020-07-17 01:40] LABS: CALCIUM 8.9 mg/dL (8.5-10.1); CREATININE 0.6 mg/dL (0.6-1.0); POTASSIUM 3.8 mmol/L (3.5-5.1)
[2020-07-17 01:41] LABS: BACTERIA,URINE 0 /HPF (0-FEW); BILIRUBIN,URINE NEG (NEG); CLARITY,URINE HAZY; COLOR,URINE YELLOW; GLUCOSE,URINE NEG (NEG); NITRITE,URINE NEG (NEG); RBC,URINE 0 /HPF (0-2); SQUAMOUS EPITHELIAL CELL,UR MOD /LPF; UROBILINOGEN,URINE 0.2 mg/dL (0.2 mg/dL)
[2020-07-17 01:47] LABS: ALBUMIN 2.3 g/dL (3.4-5.0); ALBUMIN/GLOBULIN RATIO 0.5 (1.0-1.7); MAGNESIUM 1.4 mg/dL (1.8-2.4); TOTAL BILIRUBIN 0.3 mg/dL (0.2-1.0); TOTAL PROTEIN 6.6 g/dL (6.4-8.2)
[2020-07-17 01:59] VITALS: BP 118/64
[2020-07-17] MEDS ORDERED: FAMO-63 PO (02:04)
[2020-07-17] MEDS ORDERED: ONDA4TAB12 PO (02:04)
== END 2020-07-17 02:35 | disposition home or self-care (01) ==
LOC: ER 00:14
DX: O21.8 Other vomiting complicating pregnancy (principal); O99.013 Anemia complicating pregnancy, third trimester; Z3A.29 29 weeks gestation of pregnancy
CPT/HCPCS: 36415; 80053; 81001; 83735; 85025; 87077; 87086; 96361; 96374; 96375; 99284; J2405; J3490; J7030